=== PATIENT | female | born 1995 | race Caucasian/White ===

== ENCOUNTER → 2018-04-24 09:56 | Outpatient (CLI) | payer OTHER, SELFPAY ==
[2018-04-24 12:46] LABS: Absolute Lymphocyte Count 2.14 X10^3/ul (0.83-4.51); Basophil# 0.02 X10^3/uL; Basophil% 0.3 % (0-1); Eosinophil# 0.18 X10^3/uL; Eosinophils% 2.7 % (0-5); Hemoglobin 13.5 g/dl (12.0-15.0); Lymphocyte # 2.14 X10^3/ul (4.0); Lymphocyte % 31.8 % (19-41); Mean Corp Hgb Conc 32.1 g/gl (32-36); Mean Corpuscular Hgb 27.6 pg (27.0-32.0); Mean Corpuscular Volume 85.7 fL (81-99); Mean Platelet Vol. 9.5 fl (6.2-12.0); Monocyte# 0.42 X10^3/uL; Monocyte% 6.2 % (0-10); Neutrophil # 3.97 X10^3/uL (2.7-7.7); Neutrophil % 58.9 % (47-70); Platelet Count 248 K/mm3 (150-450); RBC Distribution Width CV 11.9 % (11.6-14.6); RBC Distribution Width SD 37.4 fl (35.1-43.9); White Blood Count 6.7 K/mm3 (4.4-11.0)
[2018-04-24 12:52] LABS: Erythrocyte Sedimentation Rate 22 mm/hr (0-20); POSITIVE DIFFERENTIAL NO
[2018-04-24 12:53] LABS: POSITIVE COUNT NO; POSITIVE MORPHOLOGY NO
[2018-04-24 13:05] LABS: AST(SGOT) 20 U/L (15-37); Alanine Aminotransfer ALT/SGPT 29 U/L (13-56); Albumin, Serum 3.8 g/dL (3.2-5.0); Alkaline Phosphatase 57 U/L (45-117); Anion Gap 9 (5-15); BUN 7 mg/dL (7-18); BUN/Creat Ratio 7.6 RATIO (10-20); CRP < 2.90 mg/L (0.0-3.0); Calcium,Total 8.9 mg/dL (8.5-10.1); Chloride 107 mmol/L (98-107); Creatinine, Serum 0.92 mg/dL (0.55-1.02); EST Glomerular Filtration Rate 80 mL/min (>60); Est Glom Filt Rate - Afr Amer 96 mL/min (>60); Globulin 3.9 g/dL (2.2-4.2); Glucose 90 mg/dL (74-106); Potassium 4.2 mmol/L (3.5-5.1); Protein, Total 7.7 g/dL (6.4-8.2); Sodium Level 140 mmol/L (136-145)
== END ==
PROVIDERS: Family Provider Family Medicine; PCP Family Medicine; Visit Provider Family Medicine
DX: N30.90 Cystitis, unspecified without hematuria (principal); K50.90 Crohn's disease, unspecified, without complications; M54.9 Dorsalgia, unspecified
CPT/HCPCS: 36415; 80053; 85025; 85652; 86140; 87086; 87088

== ENCOUNTER → 2018-05-10 10:14 | Outpatient (CLI) | payer OTHER, SELFPAY ==
--- NOTE | 2018-05-10 10:18 | US_ITS ---
STUDY: ABDOMINAL ULTRASOUND REASON FOR EXAM: Female, 22 years old. Crohn's disease. Left lower quadrant pain. Previous surgery. TECHNIQUE: Transabdominal ultrasound was performed with real-time and static rosas scale imaging. TECHNICAL QUALITY: Adequate. COMPARISON: None. FINDINGS: Liver: The liver measures 15.3 cm. There is increased echogenicity consistent with fatty infiltration. The bile ducts are within normal limits. There is hepatic color flow. The direction of portal flow is hepatopetal. There is no demonstrated mass lesion. Portal vein measurement: Gallbladder: Normal distended gallbladder. The gallbladder wall measures 2.2 mm. There is a negative sonographic Wade's sign. There is no pericholecystic fluid. There are no gallstones. Common Bile Duct (C.B.D.): The common bile duct measures 2.9 mm. Pancreas: Normal size of the head, body and tail of the pancreas. There is normal echogenicity of the pancreas. There is no demonstrated pancreatic mass or cyst. Spleen: There is mild splenomegaly. The spleen measures 13.6 cm. Right Kidney: Normal size of the right kidney. The right kidney measures 11.8 x 4.9 x 5.4 cm. Normal renal cortex. Probable 2 small nonobstructing right renal stones measuring 3 mm and 5 mm. There is no demonstrated renal mass or cyst. There is no right hydronephrosis. Left Kidney: Normal size of the left kidney. The left kidney measures 11.8 x 4.9 x 4.6 cm. Normal renal cortex. 2 small probable nonobstructing stones measuring 4 mm each. There is no demonstrated renal mass or cyst. There is no left hydronephrosis. Aorta: 2.2 cm. I.V.C.: The IVC is patent. There is no ascites. US/Abdomen Complete IMPRESSION: Probable bilateral nonobstructing renal stones. Mild fatty liver. Mild splenomegaly. Electronically Signed: Kevin Chris MD at 11:23 EDT , Service support ,
== END ==
PROVIDERS: Family Provider Family Medicine; PCP Family Medicine; Visit Provider Family Medicine
DX: R10.32 Left lower quadrant pain (principal); M54.5 Low back pain; K50.90 Crohn's disease, unspecified, without complications
CPT/HCPCS: 76700

== ENCOUNTER 2018-05-13 17:58 | Emergency (ER) | payer OTHER, SELFPAY ==
[2018-05-13 18:00] VITALS: BP 133/68; PULSE 92; RESP 16; TEMP 37.1; O2SAT 98; BMI 42.5
[2018-05-13 19:32] LABS: Bacteria 0 SEEN /hpf (None Seen); Mucous, Urine 0 SEEN /hpf (<or=2+); Red Blood Cells-Urine 0 SEEN /hpf (0-5); White Blood Cells 0 SEEN /hpf (0-5)
[2018-05-13 19:34] LABS: Color, Urine Yellow (Yellow); Glucose, Dipstick Normal (Normal); Ketone-Dipstick Negative (Negative); Leukocyte Esterase-Dipstick Negative /ul (Negative); Nitrite-Dipstick Negative (Negative); Occult Blood-Urine Negative /ul (Negative); Protein-Dipstick Negative (Negative); Specific Gravity, Urine 1.015 (1.002-1.030); Urine Bilirubin Dipstick Negative (Negative); Urine Clarity Clear (Clear); Urine Urobilinogen Normal (Normal)
[2018-05-13 19:36] LABS: Internal QC Validated? YES +Cl - CLEAR BKGD
[2018-05-13 19:37] LABS: Pregnancy, Urine Negative Negative
[2018-05-13 19:39] LABS: Absolute Lymphocyte Count 2.86 X10^3/ul (0.83-4.51); Absolute Neutrophil Count 4.8 X10^3/uL (2.0-7.7); Basophil# 0.03 X10^3/uL; Basophil% 0.4 % (0-1); Eosinophil# 0.18 X10^3/uL; Eosinophils% 2.2 % (0-5); Hematocrit 39.8 % (37-47); Lymphocyte # 2.86 X10^3/ul (4.0); Lymphocyte % 34.4 % (19-41); Mean Corp Hgb Conc 32.7 g/gl (32-36); Mean Corpuscular Hgb 27.8 pg (27.0-32.0); Mean Platelet Vol. 9.6 fl (6.2-12.0); Monocyte# 0.48 X10^3/uL; Monocyte% 5.8 % (0-10); Neutrophil # 4.77 X10^3/uL (2.7-7.7); Neutrophil % 57.2 % (47-70); Platelet Count 233 K/mm3 (150-450); RBC Distribution Width CV 12.3 % (11.6-14.6); RBC Distribution Width SD 37.5 fl (35.1-43.9); Red Blood Count 4.68 M/mm3 (4.2-5.4); White Blood Count 8.3 K/mm3 (4.4-11.0)
[2018-05-13 19:41] LABS: POSITIVE COUNT NO; POSITIVE DIFFERENTIAL NO; POSITIVE MORPHOLOGY NO
[2018-05-13 19:42] LABS: Squamous Epithelial Cells - UA 0-5 SEEN /hpf (5-10)
[2018-05-13 19:48] LABS: ALB/GLOB Ratio 0.9 RATIO (0.9-2.4); AST(SGOT) 29 U/L (15-37); Alanine Aminotransfer ALT/SGPT 33 U/L (13-56); Albumin, Serum 3.6 g/dL (3.2-5.0); Alkaline Phosphatase 47 U/L (45-117); Anion Gap 7 (5-15); BUN 14 mg/dL (7-18); BUN/Creat Ratio 14.4 RATIO (10-20); Calcium,Total 8.8 mg/dL (8.5-10.1); Chloride 106 mmol/L (98-107); Creatinine, Serum 0.97 mg/dL (0.55-1.02); EST Glomerular Filtration Rate 75 mL/min (>60); Est Glom Filt Rate - Afr Amer 91 mL/min (>60); Estimated Creatinine Clearance 74.62 ml/min; Globulin 3.8 g/dL (2.2-4.2); Glucose 83 mg/dL (74-106); Lipase 128 U/L (73-393); Potassium 4.2 mmol/L (3.5-5.1); Protein, Total 7.4 g/dL (6.4-8.2); Sodium Level 139 mmol/L (136-145)
[2018-05-13 20:13] VITALS: PULSE 78; RESP 16; O2SAT 98
--- NOTE | 2018-05-13 21:01 | ED.DCSUM_ITS ---
- ER Visit Summary Date of Service: 05/13/18 Chief Complaint: Abdominal pain History of Present Illness: The patient is a 22 F who presents with abdominal pain that has been waxing and waning for the past 1-1/2 hours. Patient states the pain is diffuse. Patient states the pain is a constant dull ache but occasionally sharp at times. Patient admits to some nausea but denies any vomiting. Patient states she has had some diarrhea. Patient denies any melena or hematochezia. Patient admits to some urinary frequency but denies any dysuria. Patient denies any abnormal vaginal bleeding. Patient states her last menstrual period was approximately 1 month ago. Physical Examination: Vital signs are stable. Patient is afebrile. Patient is in no acute distress. Oral mucosa is pink and moist. Neck is supple. There is no JVD noted. Heart was regular rate and rhythm. Lungs are clear and equal bilateral. Abdomen is soft. There is some mild epigastric tenderness. There is no rebound or guarding noted. Cranial nerves II through XII are intact. There are no focal motor or sensory deficits noted. The remaining physical exam is within normal limits. Test Results: CBC, conference of metabolic profile, urinalysis, and urine hCG were obtained were negative. Emergency Department Course and Treatment: Patient felt better on reevaluation. Patient was instructed to follow-up with her primary care physician in 7-10 days. Patient understood and was agreeable with the plan. All questions were answered. Disposition: Discharged home Impression: Abdominal pain This note was generated with [employer] dictation software. It may contain incorrect words, spelling, and punctuation that were not noted in review of the chart prior to signing ED Disposition - Plan for ED Patient: Disposition: Home or Assisted Living Chief Complaint: Abd Pain Diagnosis: Epigastric abdominal pain of unknown etiology Instructions: ED Abdominal Pain Unkn Cause Referrals: Faustino Hobbs MD [Primary Care Provider] -
[2018-05-13 21:05] VITALS: BP 120/76; PULSE 76; RESP 16; O2SAT 98
== END 2018-05-13 21:10 | disposition home or self-care (01) ==
PROVIDERS: Emergency Provider Emergency Medicine; Family Provider Family Medicine; PCP Family Medicine
DX: R10.9 Unspecified abdominal pain (principal); R19.7 Diarrhea, unspecified; R11.0 Nausea; R35.0 Frequency of micturition; K50.90 Crohn's disease, unspecified, without complications; R16.1 Splenomegaly, not elsewhere classified
CPT/HCPCS: 80053; 81001; 81025; 83690; 85025; 87086; 87088; 99283; A4216

== ENCOUNTER → 2018-05-28 08:00 | Outpatient (CLI) | payer OTHER, SELFPAY | PROVIDERS: Family Provider Family Medicine; PCP Family Medicine; Referring Provider Family Medicine; Visit Provider Family Medicine | DX: R82.90 Unspecified abnormal findings in urine (principal) ==

== ENCOUNTER → 2018-06-10 14:53 | Outpatient (CLI) | payer OTHER, SELFPAY ==
--- NOTE | 2018-06-10 14:55 | CT_ITS ---
STUDY: CT ABDOMEN AND PELVIS WITH CONTRAST REASON FOR EXAM: Female, 22 years old. Left-sided pain. History of small bowel resection due to Crohn's disease. RADIATION DOSAGE (If Supplied By Facility): CTDIvol = ( 14.49 ) mGy, DLP = ( 993.11 ) mGycm TECHNIQUE: Transaxial images were obtained from the dome of the diaphragm to the symphysis pubis without oral contrast. 100 ml of Isovue 300 contrast was administered. Sagittal and coronal images were reconstructed. Individualized dose optimization techniques were used for this CT. COMPARISON: None. FINDINGS: The visualized lung bases are clear. The visualized portions of the heart and pericardium are within normal limits. There are no calcified gallstones present. The liver is within normal limits. There are no suspicious hepatic lesions. The spleen is normal in size. The pancreas is within normal limits. The adrenal glands are within normal limits. There are no renal or ureteral stones. There is no hydronephrosis. There are no focal renal lesions. Normal visualized stomach. There is no bowel obstruction or inflammation. There are postsurgical changes noted from prior small bowel resection. There are surgical clips at the base of the cecum, likely from prior appendectomy. The aorta is normal in caliber. There is no abdominal or pelvic free air, free fluid, fluid collection or lymphadenopathy. There is a 2 cm complex cyst in the left adnexa. There are no destructive osseous lesions. CT/Abdomen/Pelvis WITH Contrast IMPRESSION: No bowel obstruction or inflammation. 2 cm complex cyst in the left adnexa. This may be hemorrhagic in nature. If indicated, further evaluation with ultrasound can be performed Electronically Signed: Christofer Ryder, at 15:35 EDT Tel , Service support ,
== END ==
PROVIDERS: Family Provider Family Medicine; PCP Family Medicine; Referring Provider Family Medicine; Visit Provider Family Medicine
DX: R10.9 Unspecified abdominal pain (principal)
CPT/HCPCS: 74177; Q9967

== ENCOUNTER → 2018-08-07 17:24 | Outpatient (CLI) | payer OTHER, SELFPAY ==
[2018-08-07 10:17] VITALS: BMI 42.5
[2018-08-07 21:21] LABS: Chlamydia Trachomatis by PCR Negative (Negative); Neisserai gonorrhoeae by PCR Negative (Negative); Probe Check PASS; Sample Adequacy Control PASS; Specimen Processing Control PASS
[2018-08-11 08:42] LABS: HPV Reflexed? NOT INDICATED
== END ==
PROVIDERS: Family Provider Family Medicine; PCP Family Medicine; Referring Provider Nurse Practitioner Women's Health; Visit Provider Nurse Practitioner Women's Health
DX: Z11.3 Encounter for screening for infections with a predominantly sexual mode of transmission (principal); Z12.4 Encounter for screening for malignant neoplasm of cervix
CPT/HCPCS: 87491; 87591; 87624; 88175; G0145

== ENCOUNTER → 2018-10-22 13:58 | Outpatient (CLI) | payer OTHER, SELFPAY ==
[2018-08-07 10:17] VITALS: BMI 42.5
[2018-10-22 15:27] LABS: Hemoglobin 13.6 g/dl (12.0-15.0); Mean Corp Hgb Conc 32.4 g/gl (32-36); Mean Corpuscular Hgb 28.3 pg (27.0-32.0); Mean Corpuscular Volume 87.3 fL (81-99); Mean Platelet Vol. 9.9 fl (6.2-12.0); Platelet Count 239 K/mm3 (150-450); RBC Distribution Width CV 12.2 % (11.6-14.6); RBC Distribution Width SD 39.4 fl (35.1-43.9); Red Blood Count 4.81 M/mm3 (4.2-5.4); White Blood Count 8.4 K/mm3 (4.4-11.0)
[2018-10-22 15:32] LABS: Scan Indicated on CBC? Y/N NO
[2018-10-22 15:46] LABS: ALB/GLOB Ratio 1.1 RATIO (0.9-2.4); AST(SGOT) 25 U/L (15-37); Alanine Aminotransfer ALT/SGPT 33 U/L (13-56); Albumin, Serum 4.2 g/dL (3.2-5.0); Alkaline Phosphatase 50 U/L (45-117); Anion Gap 9 (5-15); BUN 13 mg/dL (7-18); BUN/Creat Ratio 13.1 RATIO (10-20); Calcium,Total 9.1 mg/dL (8.5-10.1); Chloride 105 mmol/L (98-107); Creatinine, Serum 0.99 mg/dL (0.55-1.02); EST Glomerular Filtration Rate 73 mL/min (>60); Est Glom Filt Rate - Afr Amer 89 mL/min (>60); Globulin 3.7 g/dL (2.2-4.2); Glucose 87 mg/dL (74-106); Potassium 4.1 mmol/L (3.5-5.1); Protein, Total 7.9 g/dL (6.4-8.2); Sodium Level 140 mmol/L (136-145)
[2018-10-22 15:49] LABS: Vitamin B12 834 pg/mL (211-911)
[2018-10-22 16:00] LABS: Erythrocyte Sedimentation Rate 7 mm/hr (0-20)
== END ==
PROVIDERS: Family Provider Family Medicine; PCP Family Medicine; Referring Provider Internal Medicine Gastroenterology; Visit Provider Internal Medicine Gastroenterology
DX: K50.90 Crohn's disease, unspecified, without complications (principal)
CPT/HCPCS: 36415; 80053; 82607; 85027; 85652

== ENCOUNTER → 2018-11-19 12:08 | Outpatient (CLI) | payer OTHER, SELFPAY ==
[2018-08-07 10:17] VITALS: BMI 42.5
[2018-11-19 15:29] LABS: Absolute Lymphocyte Count 2.58 X10^3/ul (0.83-4.51); Absolute Neutrophil Count 4.2 X10^3/uL (2.0-7.7); Basophil# 0.02 X10^3/uL; Basophil% 0.3 % (0-1); Eosinophil# 0.11 X10^3/uL; Eosinophils% 1.5 % (0-5); Hematocrit 41.6 % (37-47); Hemoglobin 13.8 g/dl (12.0-15.0); Lymphocyte # 2.58 X10^3/ul (4.0); Lymphocyte % 34.5 % (19-41); Mean Corp Hgb Conc 33.2 g/gl (32-36); Mean Corpuscular Hgb 28.4 pg (27.0-32.0); Mean Corpuscular Volume 85.6 fL (81-99); Mean Platelet Vol. 10.6 fl (6.2-12.0); Monocyte# 0.53 X10^3/uL; Monocyte% 7.1 % (0-10); Neutrophil # 4.22 X10^3/uL (2.7-7.7); Neutrophil % 56.5 % (47-70); Platelet Count 237 K/mm3 (150-450); RBC Distribution Width CV 12.2 % (11.6-14.6); RBC Distribution Width SD 37.9 fl (35.1-43.9); Red Blood Count 4.86 M/mm3 (4.2-5.4); White Blood Count 7.5 K/mm3 (4.4-11.0)
[2018-11-19 15:32] LABS: POSITIVE COUNT NO; POSITIVE DIFFERENTIAL NO; POSITIVE MORPHOLOGY NO
[2018-11-19 15:57] LABS: ALB/GLOB Ratio 1.2 RATIO (0.9-2.4); AST(SGOT) 20 U/L (15-37); Alanine Aminotransfer ALT/SGPT 29 U/L (13-56); Albumin, Serum 4.3 g/dL (3.2-5.0); Alkaline Phosphatase 48 U/L (45-117); Anion Gap 8 (5-15); BUN 10 mg/dL (7-18); BUN/Creat Ratio 10.6 RATIO (10-20); CRP < 2.90 mg/L (0.0-3.0); Calcium,Total 8.6 mg/dL (8.5-10.1); Chloride 109 mmol/L (98-107); Creatinine, Serum 0.95 mg/dL (0.55-1.02); EST Glomerular Filtration Rate 77 mL/min (>60); Est Glom Filt Rate - Afr Amer 93 mL/min (>60); Globulin 3.5 g/dL (2.2-4.2); Glucose 87 mg/dL (74-106); Lipase 112 U/L (73-393); Potassium 3.8 mmol/L (3.5-5.1); Protein, Total 7.8 g/dL (6.4-8.2); Sodium Level 140 mmol/L (136-145); Thyroid Stim Hormone (TSH) 0.68 uIU/mL (0.358-3.74)
[2018-11-19 16:06] LABS: Erythrocyte Sedimentation Rate 6 mm/hr (0-20)
[2018-11-21 14:40] LABS: ANTINUCLEAR ANTIBODIES DIRECT Negative (Negative)
== END ==
PROVIDERS: Family Provider Family Medicine; PCP Family Medicine; Referring Provider Family Medicine; Visit Provider Family Medicine
DX: K50.90 Crohn's disease, unspecified, without complications (principal); M54.6 Pain in thoracic spine; R10.9 Unspecified abdominal pain; R39.15 Urgency of urination
CPT/HCPCS: 36415; 80053; 83690; 84443; 85025; 85652; 86038; 86140

== ENCOUNTER 2018-11-19 18:41 | Emergency (ER) | payer OTHER, SELFPAY ==
[2018-08-07 10:17] VITALS: BMI 42.5
[2018-11-19 18:43] VITALS: BP 134/79; PULSE 71; RESP 18; TEMP 36.7; O2SAT 99; BMI 41.5
--- NOTE | 2018-11-19 18:52 | ED.RN ---
PAIN HAS GOTTEN PROGRESSIVELY WORSE SINCE LAST . THE LAST COUPLE OF DAYS ARE EVEN WORSE.
--- NOTE | 2018-11-19 19:26 | CT_ITS ---
STUDY: CT ABDOMEN AND PELVIS WITH CONTRAST REASON FOR EXAM: Female, 23 years old. Crohn's disease, left upper abdominal pain radiating to the back RADIATION DOSAGE (If Supplied By Facility): CTDIvol = ( 16.97 ) mGy, DLP = ( 1277.49 ) mGycm TECHNIQUE: Transaxial images were obtained from the dome of the diaphragm to the symphysis pubis with oral contrast. 100ml IV/Oral Isovue 300 was administered. Sagittal and coronal images were reconstructed. Individualized dose optimization techniques were used for this CT. COMPARISON: 06/10/2018 FINDINGS: The visualized lung bases are unremarkable. The visualized portions of the heart are within normal limits. Normal liver. Normal gallbladder and extrahepatic biliary system. Normal spleen. Normal pancreas. Normal bilateral adrenal glands. Normal right kidney. Normal left kidney. Normal visualized stomach. Normal small intestine. Resection of the proximal colon. Normal abdominal aorta. Normal inferior vena cava. Normal retroperitoneum. Normal urinary bladder. Free pelvic fluid. 20 x 15 mm corpus luteum cyst in the left ovary. Normal abdominal wall. Normal osseous structures. CT/Abdomen/Pelvis WITH Contrast IMPRESSION: No evidence of acute intestinal pathology. No evidence of free air or abscess. Free pelvic fluid. 20 x 15 mm corpus luteum cyst in the left ovary. Electronically Signed: Tito Thompson MD at 22:07 EDT Tel , Service support ,
[2018-11-19] MEDS: Ondansetron 4 MG/2 ML Vial IV (19:51)
[2018-11-19] MEDS: 0.9% Normal Saline 1,000 ML 1000 ML IV (19:51)
[2018-11-19] MEDS: HYDROmorphone 1 MG/ML Syringe 0.5 MG IV (19:51)
[2018-11-19 20:04] LABS: Bacteria 0 SEEN /hpf (None Seen); Mucous, Urine 0 SEEN /hpf (<or=2+); Red Blood Cells-Urine 0 SEEN /hpf (0-5); Squamous Epithelial Cells - UA 0 SEEN /hpf (5-10); White Blood Cells 0 SEEN /hpf (0-5)
[2018-11-19 20:05] LABS: Color, Urine Yellow (Yellow); Glucose, Dipstick Normal (Normal); Ketone-Dipstick 5 mg/dl (Negative); Leukocyte Esterase-Dipstick 25 /ul (Negative); Nitrite-Dipstick Negative (Negative); Occult Blood-Urine Negative /ul (Negative); Protein-Dipstick Negative (Negative); Specific Gravity, Urine 1.025 (1.002-1.030); Urine Bilirubin Dipstick Negative (Negative); Urine Clarity Sl. Cloudy (Clear); Urine Urobilinogen Normal (Normal)
[2018-11-19 20:55] LABS: Pregnancy, Serum, hCG Quali. NEGATIVE Negative (0-9 Nonpreg)
[2018-11-19 22:00] VITALS: BP 137/69; PULSE 66; RESP 16; O2SAT 98
[2018-11-19] MEDS: HYDROmorphone 0.5 MG/0.5 ML SYRINGE IV (22:22)
--- NOTE | 2018-11-19 22:34 | ED.DCSUM_ITS ---
- ER Visit Summary Date of Service: 11/19/18 Chief Complaint: Abdominal pain History of Present Illness: The patient is a 23 F with left-sided abdominal pain that has been mild since April but more severe over the past 1 week. She reports having several days of nausea and vomiting that are now improving. She was seen by her primary care doctor today and labs were done in the office. She is a history of Crohn's. She states she never gets the typical diarrhea with Crohn's flare. She has had some mild urinary urgency but no dysuria. Physical Examination: Vital signs unremarkable. Patient sitting upright in bed. She is in no acute distress but does appear uncomfortable. Heart is regular rate and rhythm. Lung sounds are clear. Abdomen is soft with mild left mid abdominal pain. No guarding or rebound. Hypoactive bowel sounds are present. No skin rash or lesions are noted. Test Results: Labs from earlier today were reviewed. Urinalysis shows no sign of acute infection. test negative. CT scan abdomen and pelvis with p.o. and IV contrast is obtained. There is no evidence of acute pathology. No free air or abscess. There is a 20 x 15 mm corpus luteum cyst in the left ovary. Emergency Department Course and Treatment: Patient was given a small dose of Dilaudid, Zofran, and IV fluids. On repeat evaluation she voices frustration with not finding an answer and stating that she is tired of always being in pain. I spoke with her primary care physician who saw her in the office earlier today. Is been a chronic ongoing cycle for her. Patient will be seen in the office in close follow-up. Treatment Plan: [] Disposition: Discharge Impression: Left flank pain, uncertain etiology This note was generated with [employer] dictation software. It may contain incorrect words, spelling, and punctuation that were not noted in review of the chart prior to signing ED Disposition - Plan for ED Patient: Disposition: Home or Assisted Living Instructions: ED Abdominal Pain Unkn Cause Prescriptions: Hydrocodone Bitart/Apap 5-325 [[place] 5MG-325MG] 1 tablet PO Q6H PRN PRN 3 Days #10 tablet PRN Reason: Pain Referrals: Faustino Hobbs MD [Primary Care Provider] - 1-2 Weeks
--- NOTE | 2018-11-19 22:38 | DCINST.ED_ITS ---
ED Disposition - Plan for ED Patient: Disposition: Home or Assisted Living Instructions: ED Abdominal Pain Unkn Cause Prescriptions: Hydrocodone Bitart/Apap 5-325 [[place] 5MG-325MG] 1 tablet PO Q6H PRN PRN 3 Days #10 tablet PRN Reason: Pain Referrals: Faustino Hobbs MD [Primary Care Provider] - 1-2 Weeks
== END 2018-11-19 22:58 | disposition home or self-care (01) ==
PROVIDERS: Emergency Provider Emergency Medicine; Family Provider Family Medicine; PCP Family Medicine
DX: R10.9 Unspecified abdominal pain (principal); R11.2 Nausea with vomiting, unspecified; N83.12 Corpus luteum cyst of left ovary; K50.90 Crohn's disease, unspecified, without complications; R39.15 Urgency of urination; J45.909 Unspecified asthma, uncomplicated
CPT/HCPCS: 74177; 81001; 84703; 96361; 96374; 96375; 99283; J7030; Q9967; A4216; J2405

== ENCOUNTER 2019-02-22 12:19 | Emergency (ER) | payer OTHER, SELFPAY ==
[2019-02-22 12:20] VITALS: BP 106/62; PULSE 80; RESP 16; TEMP 36.6; O2SAT 97; BMI 35.4
--- NOTE | 2019-02-22 13:58 | ED.DEP ---
ED Disposition - Plan for ED Patient: Instructions: Thrombosed Hemorrhoids, PHARYNGITIS, Viral Prescriptions: Hydrocortisone [Anusol Hc] 25 mg RECTAL BID PRN PRN #10 suppos. PRN Reason: Hemorrhoids Prescription Printed Referrals: Faustino Hobbs MD [Primary Care Provider] - 3-5 Days
--- NOTE | 2019-02-22 14:03 | ED.DCSUM_ITS ---
- ER Visit Summary Date of Service: 02/22/19 Chief Complaint: [Abdominal pain, rectal pain, and sore throat] History of Present Illness: The patient is a 23 F [presents to the emergency department with symptoms of intermittent abdominal discomfort for the last month. Patient had some mild nausea but no vomiting. Patient's had diarrhea off-and-on but no blood in her stool. Patient currently being treated for Crohn's disease and is on Humira. Patient has history of partial small bowel resection that is remote. Patient states that she thinks she currently has a hemorrhoid because it is causing her discomfort. The hemorrhoid is the main reason she is here today. Patient also states that she has had a bit of a sore throat for a couple of days. Patient denies any significant cough. Denies any fevers.] Physical Examination: [HEENT-PERRLA, EOMI. Cranial nerves II through XII grossly intact. TMs clear. Mucous membranes moist. No adenopathy. Patient has mild pharyngeal erythema. No exudates. Uvula midline no trismus. Cardiovascular-regular rate and rhythm without murmur or ectopy Lungs-clear to auscultation, chest wall stable without crepitus or subcu emphysema Abdomen-normoactive bowel sounds, soft, nontender, no rebound or rigidity, no peritoneal signs. Rectal exam-patient does have a thrombosed hemorrhoid at the 12 o'clock position. Hemorrhoid is tender to palpation. Extremities-intact ?4, normal range of motion, normal pulses, atraumatic] Test Results: [Rapid strep screen was negative. Emergency Department Course and Treatment: [Patient was offered incision and evacuation of the hemorrhoids which she agreed. Patient had local anesthesia via lidocaine total of 1 cc. Using 11 blade 1 cm incision was made and the clot was easily evacuated. The entire procedure well.] Treatment Plan: [Patient will be given a prescription for Anusol HC. Advised on sitz bath's. Patient to follow-up with primary care physician 3 to 5 days.] Disposition: [Discharged home stable condition.] Impression: [Thrombosed hemorrhoid-evacuated Viral pharyngitis] This note was generated with [employer] software. It may contain incorrect words, spelling, and punctuation that were not noted in review of the chart prior to signing ED Disposition - Plan for ED Patient: Instructions: Thrombosed Hemorrhoids, PHARYNGITIS, Viral Prescriptions: Hydrocortisone [Anusol Hc] 25 mg RECTAL BID PRN PRN #10 suppos. PRN Reason: Hemorrhoids Prescription Printed Referrals: Faustino Hobbs MD [Primary Care Provider] - 3-5 Days
[2019-02-22 14:14] VITALS: BP 113/69; PULSE 72; RESP 15; O2SAT 98
== END 2019-02-22 14:15 | disposition home or self-care (01) ==
LOC: ED 13:40
PROVIDERS: Emergency Provider Emergency Medicine; Family Provider Family Medicine; PCP Family Medicine
DX: K64.5 Perianal venous thrombosis (principal); J02.9 Acute pharyngitis, unspecified; R11.0 Nausea; K50.90 Crohn's disease, unspecified, without complications
CPT/HCPCS: 46083; 87880; 99283

== ENCOUNTER → 2019-03-04 16:29 | Outpatient (CLI) | payer OTHER, SELFPAY ==
[2019-02-22 12:20] VITALS: BMI 35.4
[2019-03-04 17:28] LABS: Hematocrit 41.6 % (37-47); Hemoglobin 13.5 g/dL (12.0-15.0); Mean Corp Hgb Conc 32.5 g/dL (32-36); Mean Corpuscular Hgb 28.2 pg (27.0-32.0); Mean Platelet Vol. 10.7 fl (6.2-12.0); Platelet Count 251 K/mm3 (150-450); RBC Distribution Width CV 11.7 % (11.6-14.6); RBC Distribution Width SD 37.4 fl (35.1-43.9); Red Blood Count 4.78 M/mm3 (4.2-5.4); White Blood Count 8.3 K/mm3 (4.4-11.0)
[2019-03-04 18:04] LABS: AST(SGOT) 18 U/L (15-37); Alanine Aminotransfer ALT/SGPT 29 U/L (13-56); Albumin, Serum 4.1 g/dL (3.2-5.0); Alkaline Phosphatase 47 U/L (45-117); Bilirubin, Direct 0.15 mg/dL (0.00-0.30); CRP < 2.90 mg/L (0.0-3.0); Globulin 3.5 g/dL (2.2-4.2); Protein, Total 7.6 g/dL (6.4-8.2)
== END ==
PROVIDERS: Family Provider Family Medicine; PCP Family Medicine; Referring Provider Internal Medicine Gastroenterology; Visit Provider Internal Medicine Gastroenterology
DX: K50.90 Crohn's disease, unspecified, without complications (principal)
CPT/HCPCS: 36415; 80076; 85027; 86140

== ENCOUNTER 2019-03-12 12:32 | Emergency (ER) | payer OTHER, SELFPAY ==
[2019-03-12 12:32] VITALS: BP 140/83; PULSE 68; RESP 16; TEMP 36.4; O2SAT 100; BMI 35.8
--- NOTE | 2019-03-12 12:51 | CT_ITS ---
STUDY: CT ABDOMEN AND PELVIS WITH CONTRAST REASON FOR EXAM: Female, 23 years old. Left flank pain RADIATION DOSAGE (If Supplied By Facility): CTDIvol = ( 19.58 ) mGy, DLP = ( 1188.60 ) mGycm TECHNIQUE: Transaxial images were obtained from the dome of the diaphragm to the symphysis pubis without oral contrast. 100ML IV/Oral Isovue 300 was administered. Sagittal and coronal images were reconstructed. Individualized dose optimization techniques were used for this CT. COMPARISON: 11/19/2018 FINDINGS: The visualized lung bases are unremarkable. The visualized portions of the heart are within normal limits. Normal liver. Normal gallbladder and extrahepatic biliary system. Normal spleen. Normal pancreas. Normal bilateral adrenal glands. Normal right kidney. Normal left kidney. Normal visualized stomach. Normal small intestine. There are a few scattered sigmoid diverticula with nonspecific thickening of the sigmoid colon suggesting sequela from previous exacerbations of Crohn's disease. There is a normal-appearing uterus with bilateral ovarian cysts and free fluid in the dependent pelvis pass a recently ruptured ovarian cyst. There are surgical clips in the region of the appendix consistent with a prior appendectomy. Normal abdominal aorta. Normal inferior vena cava. Normal retroperitoneum. Normal urinary bladder. Normal abdominal wall. Normal osseous structures. CT/Abdomen/Pelvis WITH Contrast IMPRESSION: Bilateral ovarian cysts with free fluid in the dependent pelvis likely from recently ruptured or hemorrhagic ovarian cyst. Nonspecific thickening of the sigmoid colon likely from recent exacerbation of Crohn's. No suspicious solid organ abnormality Postsurgical changes in the right mid abdomen, no obstruction or stricture noted Electronically Signed: Rubens Devi MD at 15:04 EDT , Service support ,
[2019-03-12] MEDS: Ondansetron 4 MG/2 ML Vial IV (12:59)
[2019-03-12] MEDS: 0.9% Normal Saline 1,000 ML 1000 ML IV (12:59)
[2019-03-12 13:19] LABS: Red Blood Cells-Urine 0 SEEN /hpf (0-5)
[2019-03-12 13:22] LABS: Absolute Lymphocyte Count 2.58 X10^3/uL (0.83-4.51); Absolute Neutrophil Count 6.9 X10^3/uL (2.0-7.7); Basophil# 0.04 X10^3/uL; Basophil% 0.4 % (0-1); Eosinophil# 0.08 X10^3/uL; Eosinophils% 0.8 % (0-5); Hematocrit 40.2 % (37-47); Hemoglobin 13.8 g/dL (12.0-15.0); Lymphocyte # 2.58 X10^3/ul (4.0); Lymphocyte % 25.1 % (19-41); Mean Corp Hgb Conc 34.3 g/dL (32-36); Mean Corpuscular Hgb 29.9 pg (27.0-32.0); Mean Corpuscular Volume 87.2 fL (81-99); Mean Platelet Vol. 10.3 fl (6.2-12.0); Monocyte# 0.69 X10^3/uL; Monocyte% 6.7 % (0-10); NRBC Flagged by Analyzer 0 % (0-5); Neutrophil # 6.88 X10^3/uL (2.7-7.7); Neutrophil % 66.9 % (47-70); Platelet Count 204 K/mm3 (150-450); RBC Distribution Width CV 11.8 % (11.6-14.6); RBC Distribution Width SD 37.2 fl (35.1-43.9); Red Blood Count 4.61 M/mm3 (4.2-5.4); White Blood Count 10.3 K/mm3 (4.4-11.0)
[2019-03-12 13:23] LABS: Color, Urine Yellow (Yellow); Glucose, Dipstick Normal (Normal); Ketone-Dipstick 50 mg/dl (Negative); Leukocyte Esterase-Dipstick 25 /ul (Negative); Nitrite-Dipstick Negative (Negative); Occult Blood-Urine Negative /ul (Negative); Protein-Dipstick 30 mg/dl (Negative); Specific Gravity, Urine 1.015 (1.002-1.030); Urine Clarity Sl. Cloudy (Clear); Urine Urobilinogen 4 mg/dl (Normal)
[2019-03-12 13:24] LABS: Urine Bilirubin Dipstick 1 mg/dL (Negative)
[2019-03-12 13:25] LABS: Internal QC Validated? YES +Cl - CLEAR BKGD; Pregnancy, Urine Negative Negative
[2019-03-12 13:37] LABS: ALB/GLOB Ratio 1.3 RATIO (0.9-2.4); AST(SGOT) 19 U/L (15-37); Alanine Aminotransfer ALT/SGPT 31 U/L (13-56); Albumin, Serum 4.3 g/dL (3.2-5.0); Alkaline Phosphatase 46 U/L (45-117); Anion Gap 7 (5-15); BUN 8 mg/dL (7-18); BUN/Creat Ratio 8.6 RATIO (10-20); Bacteria 2+ /hpf (None Seen); Chloride 109 mmol/L (98-107); Creatinine, Serum 0.94 mg/dL (0.55-1.02); EST Glomerular Filtration Rate 78 mL/min (>60); Est Glom Filt Rate - Afr Amer 94 mL/min (>60); Estimated Creatinine Clearance 72.99 ml/min; Globulin 3.2 g/dL (2.2-4.2); Glucose 90 mg/dL (74-106); Lipase 104 U/L (73-393); Mucous, Urine 2+ /hpf (<or=2+); Potassium 3.8 mmol/L (3.5-5.1); Protein, Total 7.5 g/dL (6.4-8.2); Sodium Level 143 mmol/L (136-145); Squamous Epithelial Cells - UA 0-5 SEEN /hpf (5-10); White Blood Cells 0-5 SEEN /hpf (0-5)
--- NOTE | 2019-03-12 13:39 | ED.DCSUM_ITS ---
History of Present Illness Chief Complaint: Back Onset: Month(s) - 3 Narrative: Intermittent left flank pain radiating across to her epigastric region for the past 3 months. Nausea without vomiting. History of Crohn's disease on Humira since she was 13 years old. She is followed by Dr. Whitlock. She states she has had 30 pound weight loss. She had a colonoscopy yesterday by Dr. Whitlock with no acute findings. Chronic loose stools due to her Crohn's no bloody stools. Denies urinary symptoms. Last menstrual period 2 weeks ago. No fevers. Prior similar symptoms: No Past Medical History - Allergies and Home Meds Allergies/Adverse Reactions: Allergies codeine Allergy (Verified 03/12/19 12:35) Swelling morphine Allergy (Verified 03/12/19 12:35) Shortness of breath Primary Care Physician: Faustino Hobbs MD [Primary Care Provider] - Smoking Status: Never smoker Review of Systems General: Denies: Chills, Fever, Sweats Eyes: Denies: Visual changes - bilaterally, Diplopia ENT: Denies: Rhinorrhea, Sore throat Cardiovascular: Denies: Chest pain, Palpitations Respiratory: Denies: Dyspnea, Cough, Dyspnea on exertion Gastrointestinal: Reports: Abdominal pain, Nausea. Denies: Vomiting, Diarrhea, Melena, Hematochezia Genitourinary: Denies: Dysuria, Hematuria, Frequency Musculoskeletal: Reports: Back pain. Denies: Extremity Pain Skin: Denies: Rash, Wounds Neurological: Denies: Headache, Weakness, Numbness Physical Exam Vital Signs/Narrative: Vital Signs Temp Pulse Resp BP Pulse Ox 03/12/19 12:32 97.6 F L 68 16 140/83 H 100 Inital Vital Signs reviewed: Yes General: Well nourished, Well developed, No Acute Distress Head: Normocephalic, Atraumatic Eyes: Perrl, EOMI ENT: Moist mucous membranes, No rhinorrhea Neck: Supple, Nontender Cardiovascular: Regular rate, Regular rhythm, No murmurs Respiratory: No distress, CTA bilaterally, Chest nontender Abdomen: Soft, Nondistended, Normal bowel sounds, - - Mild epigastric tenderness, no guarding or rebound. Back: Nontender, Normal Inspection, - - No rash.. Negative for: CVA tenderness Extremities: Nontender, No edema Skin: Normal color, No rash Neurological: Alert, Oriented x3, Cranial nerves II-XII grossly intact, Normal Strength, Normal Sensation Psychological: Normal affect, Normal Mood Diagnostic/Tx/Re-eval Clinical Impression(s) from Imaging Studies Abdomen/Pelvis CT 03/12/19 12:51 IMPRESSION: Bilateral ovarian cysts with free fluid in the dependent pelvis likely from recently ruptured or hemorrhagic ovarian cyst. Nonspecific thickening of the sigmoid colon likely from recent exacerbation of Crohn's. No suspicious solid organ abnormality Postsurgical changes in the right mid abdomen, no obstruction or stricture noted Electronically Signed: Rubens Devi MD at 15:04 EDT , Service support , Abnormal Lab Results 03/12/19 03/12/19 03/12/19 13:00 13:00 13:00 WBC 10.3 RBC 4.61 Hgb 13.8 Hct 40.2 MCV 87.2 MCH 29.9 MCHC 34.3 RDW Std Deviation 37.2 RDW Coeff of Ele 11.8 Plt Count 204 MPV 10.3 Immature Gran % (Auto) 0.100 Neut % (Auto) 66.9 Lymph % (Auto) 25.1 [place] % (Auto) 6.7 Eos % (Auto) 0.8 Baso % (Auto) 0.4 Absolute Neuts (auto) 6.9 Absolute Lymphs (auto) 2.58 Absolute Nucleated RBC 0.00 Nucleated RBC % 0 Sodium 143 Potassium 3.8 Chloride 109 H Carbon Dioxide 27.0 Anion Gap 7 BUN 8 Creatinine 0.94 Estim Creat Clear Calc 72.99 Est GFR (MDRD) Af Amer 94 Est GFR (MDRD) Non-Af 78 BUN/Creatinine Ratio 8.6 L Glucose 90 Calcium 9.0 Total Bilirubin 1.10 H AST 19 ALT 31 Alkaline Phosphatase 46 Total Protein 7.5 Albumin 4.3 Globulin 3.2 Albumin/Globulin Ratio 1.3 Lipase 104 Urine Color Urine Clarity Urine pH Ur Specific [place] Urine Protein Urine Glucose (UA) Urine Ketones Urine Occult Blood Urine Nitrite Urine Bilirubin Urine Urobilinogen Ur Leukocyte Esterase Urine RBC Urine WBC Ur Squamous Epith Cells Urine Bacteria Urine Mucus Urine Test Negative 03/12/19 13:00 WBC RBC Hgb Hct MCV MCH MCHC RDW Std Deviation RDW Coeff of Ele Plt Count MPV Immature Gran % (Auto) Neut % (Auto) Lymph % (Auto) [place] % (Auto) Eos % (Auto) Baso % (Auto) Absolute Neuts (auto) Absolute Lymphs (auto) Absolute Nucleated RBC Nucleated RBC % Sodium Potassium Chloride Carbon Dioxide Anion Gap BUN Creatinine Estim Creat Clear Calc Est GFR (MDRD) Af Amer Est GFR (MDRD) Non-Af BUN/Creatinine Ratio Glucose Calcium Total Bilirubin AST ALT Alkaline Phosphatase Total Protein Albumin Globulin Albumin/Globulin Ratio Lipase Urine Color Yellow Urine Clarity Sl. Cloudy Urine pH 7.0 Ur Specific [place] 1.015 Urine Protein 30 H Urine Glucose (UA) Normal Urine Ketones 50 H Urine Occult Blood Negative Urine Nitrite Negative Urine Bilirubin 1 H Urine Urobilinogen 4 H Ur Leukocyte Esterase 25 H Urine RBC 0 SEEN Urine WBC 0-5 SEEN Ur Squamous Epith Cells 0-5 SEEN Urine Bacteria 2+ Urine Mucus 2+ Urine Test - Medical Decision Making Patient nonsurgical abdomen. Vital signs stable. Reports flank pain rating across, there is no rash. Is been going on for 3 months. Reports weight loss. Discussed work-up with labs and imagings. She agrees. Contrast CT negative for acute process. Noted thickening sigmoid consistent from her Crohn's disease. She had bilateral ovarian cyst with free fluids with possible rupturing of her cyst. She is nontender in the pelvis region. Urine noted bacteria with leukocytes she is asymptomatic I did send for urine cultures. Would not treat at this time. Nausea improved. She was given prescription of Zofran to use as needed Tylenol as needed. Also discussed placing on a acid second chef empirically and monitoring symptoms. She will follow-up with her GI physician Dr. Whitlock. ED Disposition - Plan for ED Patient: Disposition: Home or Assisted Living Diagnosis: Flank pain, Abdominal pain, Ovarian cyst Instructions: FLANK PAIN, Uncertain Cause, ABDOMINAL PAIN, Unknown Cause, (Female), Ovarian Cyst Prescriptions: Omeprazole 40 mg PO DAILY #30 capsule. Ondansetron [Zofran Odt] 4 mg PO Q8H PRN PRN #10 tablet PRN Reason: Nausea Referrals: Faustino Hobbs MD [Primary Care Provider] - Daniel Whitlock MD [NON-STAFF] - 3-5 Days
== END 2019-03-12 15:58 | disposition home or self-care (01) ==
PROVIDERS: Emergency Provider Emergency Medicine; Family Provider Family Medicine; PCP Family Medicine
DX: R10.9 Unspecified abdominal pain (principal); N83.201 Unspecified ovarian cyst, right side; N83.202 Unspecified ovarian cyst, left side; K50.90 Crohn's disease, unspecified, without complications; R63.4 Abnormal weight loss; Z88.5 Allergy status to narcotic agent
CPT/HCPCS: 74177; 80053; 81001; 81025; 83690; 85025; 87086; 87088; 96361; 96374; 99283; J7030; Q9967; A4216; J2405

== ENCOUNTER → 2019-03-13 09:43 | Outpatient (CLI) | payer OTHER, SELFPAY ==
[2019-03-12 12:32] VITALS: BMI 35.8
--- NOTE | 2019-03-13 09:45 | RAD_ITS ---
STUDY: X-RAY - CERVICAL SPINE REASON FOR EXAM: Female, 23 years old. Neck pain and headache TECHNIQUE: 5 view(s) of the cervical spine were obtained. COMPARISON: None FINDINGS: Normal anterior atlantoaxial articulation. Normal odontoid process. There is straightening of the normal cervical lordosis. Normal vertebral bodies and endplates. Normal disc space heights. Normal visualized intervertebral neuroforamina. The soft tissue structures are unremarkable. RAD/Cerv Spine 4 or 5 Views IMPRESSION: Normal x-ray examination of the visualized cervical spine. Electronically Signed: Rubens Devi MD at 11:10 EDT , Service support ,
--- NOTE | 2019-03-13 09:45 | RAD_ITS ---
STUDY: X-RAY - THORACIC SPINE REASON FOR EXAM: Female, 23 years old. Mid back pain TECHNIQUE: 2 view(s) of the thoracic spine were obtained. COMPARISON: None. FINDINGS: Normal kyphosis of the thoracic spine. There is no substantial scoliosis. Normal thoracic vertebrae and endplates. Normal disc space heights. The soft tissue structures are unremarkable. RAD/Thoracic Spine 3 Views IMPRESSION: Normal x-ray examination of the thoracic spine. Electronically Signed: Rubens Devi MD at 11:12 EDT , Service support ,
== END ==
PROVIDERS: Family Provider Family Medicine; PCP Family Medicine; Referring Provider Family Medicine; Visit Provider Family Medicine
DX: R29.898 Other symptoms and signs involving the musculoskeletal system (principal)
CPT/HCPCS: 72050; 72072

== ENCOUNTER → 2019-04-17 11:58 | Outpatient (CLI) | payer OTHER, SELFPAY ==
[2019-04-17 14:17] LABS: Erythrocyte Sedimentation Rate 7 mm/hr (0-20)
[2019-04-17 14:19] LABS: Absolute Lymphocyte Count 2.75 X10^3/uL (0.83-4.51); Absolute Neutrophil Count 3.8 X10^3/uL (2.0-7.7); Basophil# 0.03 X10^3/uL; Basophil% 0.4 % (0-1); Eosinophil# 0.18 X10^3/uL; Eosinophils% 2.5 % (0-5); Hematocrit 42.8 % (37-47); Hemoglobin 13.9 g/dL (12.0-15.0); Lymphocyte # 2.75 X10^3/ul (4.0); Lymphocyte % 37.9 % (19-41); Mean Corp Hgb Conc 32.5 g/dL (32-36); Mean Corpuscular Hgb 29.3 pg (27.0-32.0); Mean Corpuscular Volume 90.1 fL (81-99); Mean Platelet Vol. 10.8 fl (6.2-12.0); Monocyte# 0.52 X10^3/uL; Monocyte% 7.2 % (0-10); NRBC Flagged by Analyzer 0 % (0-5); Neutrophil # 3.76 X10^3/uL (2.7-7.7); Neutrophil % 51.9 % (47-70); Platelet Count 195 K/mm3 (150-450); RBC Distribution Width CV 11.7 % (11.6-14.6); RBC Distribution Width SD 38.7 fl (35.1-43.9); Red Blood Count 4.75 M/mm3 (4.2-5.4); White Blood Count 7.3 K/mm3 (4.4-11.0)
[2019-04-17 14:46] LABS: AST(SGOT) 18 U/L (15-37); Alanine Aminotransfer ALT/SGPT 25 U/L (13-56); Albumin, Serum 3.7 g/dL (3.2-5.0); Alkaline Phosphatase 42 U/L (45-117); Anion Gap 7 (5-15); BUN 11 mg/dL (7-18); BUN/Creat Ratio 13.1 RATIO (10-20); Calcium,Total 8.8 mg/dL (8.5-10.1); Chloride 112 mmol/L (98-107); Creatinine, Serum 0.84 mg/dL (0.55-1.02); EST Glomerular Filtration Rate 88 mL/min (>60); Est Glom Filt Rate - Afr Amer 107 mL/min (>60); Globulin 3.6 g/dL (2.2-4.2); Glucose 85 mg/dL (74-106); Potassium 4.2 mmol/L (3.5-5.1); Protein, Total 7.3 g/dL (6.4-8.2); Sodium Level 143 mmol/L (136-145); Thyroid Stim Hormone (TSH) 0.46 uIU/mL (0.358-3.74)
== END ==
PROVIDERS: Family Medicine; Family Provider Family Medicine; PCP Family Medicine; Referring Provider Family Medicine; Visit Provider Family Medicine
DX: R63.4 Abnormal weight loss (principal)
CPT/HCPCS: 36415; 80053; 84443; 85025; 85652

== ENCOUNTER → 2019-05-20 08:32 | Outpatient (CLI) | payer OTHER, SELFPAY ==
--- NOTE | 2019-05-20 08:36 | RAD_ITS ---
PROCEDURE: SMALL BOWEL SERIES DATE OF EXAMINATION: May 20, 2019. INDICATION: Female, 23 years old. Crohn's disease. Prior resection of small bowel loops. Constipation and diarrhea. PHYSICIAN: Haile Jean Baptiste M.D. FLUOROSCOPY TIME (if supplied): (0:34) minutes/seconds TECHNIQUE: Radiographic and fluoroscopic images were taken of the small intestine following the ingestion of barium. COMPARISON: None. FINDINGS: A preliminary supine KUB was obtained. There is an unremarkable bowel gas pattern. Fecal material is present throughout the colon. Surgical clips are seen in the region of the right mid abdomen. The osseous structures are normal. The patient orally ingested approximately 12 ounces of thin barium Normal visualized fundus, body, and antrum of the stomach. Normal duodenal bulb, C-loop, and proximal jejunum. Normal visualized mucosal folds of the jejunum and ileum. There are no demonstrated dilatations, strictures, or masses of the small intestine. There is no mass displacement of the loops of small intestine. There is evidence of resection of the distal ileum. There is a normal motor pattern with barium reaching the colon within approximately 50 minutes. Spot films under fluoroscopic observation demonstrated a normal terminal ileum and ileocecal valve. RAD/Small Bowel Series Only IMPRESSION: Status post resection of distal ileum. No acute abnormality is seen. Electronically Signed: Haile Jean Baptiste, at 13:07 EDT , Service support ,
== END ==
PROVIDERS: Family Provider Family Medicine; PCP Family Medicine; Referring Provider Internal Medicine Gastroenterology; Visit Provider Internal Medicine Gastroenterology
DX: K50.90 Crohn's disease, unspecified, without complications (principal)
CPT/HCPCS: 74250

== ENCOUNTER → 2019-05-26 15:53 | Outpatient (CLI) | payer OTHER, SELFPAY ==
[2019-05-26 12:00] VITALS: BMI 35.8
[2019-05-26 21:58] LABS: Chlamydia Trachomatis by PCR Negative (Negative); Neisserai gonorrhoeae by PCR Negative (Negative); Probe Check PASS; Sample Adequacy Control PASS; Specimen Processing Control PASS
== END ==
PROVIDERS: Family Provider Family Medicine; PCP Family Medicine; Referring Provider Nurse Practitioner Women's Health; Visit Provider Nurse Practitioner Women's Health
DX: Z11.3 Encounter for screening for infections with a predominantly sexual mode of transmission (principal)
CPT/HCPCS: 87491; 87591

== ENCOUNTER → 2019-07-14 11:51 | Outpatient (CLI) | payer OTHER, SELFPAY ==
[2019-06-17 11:45] VITALS: BMI 32.7
[2019-07-14 13:58] LABS: Basophil# 0.04 X10^3/uL; Basophil% 0.5 % (0-1); Eosinophil# 0.09 X10^3/uL; Eosinophils% 1.2 % (0-5); Hematocrit 40.5 % (37-47); Hemoglobin 13.5 g/dL (12.0-15.0); Lymphocyte % 36.2 % (19-41); Mean Corp Hgb Conc 33.3 g/dL (32-36); Mean Corpuscular Hgb 29.3 pg (27.0-32.0); Mean Platelet Vol. 10.8 fl (6.2-12.0); Monocyte% 8.1 % (0-10); NRBC Flagged by Analyzer 0 % (0-5); Neutrophil % 53.7 % (47-70); Platelet Count 209 K/mm3 (150-450); RBC Distribution Width CV 11.7 % (11.6-14.6); RBC Distribution Width SD 37.6 fl (35.1-43.9); White Blood Count 7.5 K/mm3 (4.4-11.0)
[2019-07-14 14:24] LABS: ALB/GLOB Ratio 1.2 RATIO (0.9-2.4); AST(SGOT) 26 U/L (15-37); Alanine Aminotransfer ALT/SGPT 29 U/L (13-56); Albumin, Serum 4.1 g/dL (3.2-5.0); Alkaline Phosphatase 41 U/L (45-117); Anion Gap 8 (5-15); BUN 13 mg/dL (7-18); BUN/Creat Ratio 15.1 RATIO (10-20); CRP < 2.90 mg/L (0.0-3.0); Calcium,Total 8.6 mg/dL (8.5-10.1); Chloride 108 mmol/L (98-107); Creatinine, Serum 0.86 mg/dL (0.55-1.02); EST Glomerular Filtration Rate 85 mL/min (>60); Est Glom Filt Rate - Afr Amer 103 mL/min (>60); Ferritin 59 ng/mL (8-252); Globulin 3.3 g/dL (2.2-4.2); Glucose 83 mg/dL (74-106); Lipase 210 U/L (73-393); Potassium 3.9 mmol/L (3.5-5.1); Protein, Total 7.4 g/dL (6.4-8.2); Sodium Level 140 mmol/L (136-145)
== END ==
PROVIDERS: Family Provider Family Medicine; PCP Family Medicine; Visit Provider Family Medicine
DX: K50.90 Crohn's disease, unspecified, without complications (principal)
CPT/HCPCS: 36415; 80053; 82728; 83690; 85025; 86140; A4216

== ENCOUNTER → 2019-07-15 13:21 | Outpatient (CLI) | payer OTHER, SELFPAY ==
[2019-06-17 11:45] VITALS: BMI 32.7
== END ==
PROVIDERS: Family Provider Family Medicine; PCP Family Medicine; Referring Provider Family Medicine; Visit Provider Family Medicine
DX: K50.90 Crohn's disease, unspecified, without complications (principal)
CPT/HCPCS: 82705

== ENCOUNTER 2019-07-18 17:31 | Emergency (ER) | payer OTHER, SELFPAY ==
[2019-06-17 11:45] VITALS: BMI 32.7
[2019-07-18 17:32] VITALS: BP 125/63; PULSE 70; RESP 16; TEMP 37.1; O2SAT 98; BMI 30.2
--- NOTE | 2019-07-18 17:55 | CT_ITS ---
STUDY: CT ABDOMEN AND PELVIS WITH CONTRAST REASON FOR EXAM: Female, 23 years old. Left upper quadrant pain, Crohn's RADIATION DOSAGE (If Supplied By Facility): CTDIvol = ( 10.85 ) mGy, DLP = ( 588.37 ) mGycm TECHNIQUE: Transaxial images were obtained from the dome of the diaphragm to the symphysis pubis without oral contrast. Oral and amp; IV Gastrografin and amp; 100mL Isovue-370 100ML was administered. Sagittal and coronal images were reconstructed. Individualized dose optimization techniques were used for this CT. COMPARISON: March 12, 2019 FINDINGS: 6 mm left lower lobe peripheral nodular density. The visualized portions of the heart are within normal limits. Normal liver. Normal gallbladder and extrahepatic biliary system. Normal spleen. Normal pancreas. Normal bilateral adrenal glands. Normal right kidney. Normal left kidney. Normal visualized stomach. Normal small intestine. Status post surgery at the proximal colon. The appendix is nonvisualized. Normal abdominal aorta. Normal inferior vena cava. Normal retroperitoneum. There are mildly prominent mesenteric nodes up to 1.7 cm. Normal urinary bladder. IUD in the uterus. Normal abdominal wall. Normal osseous structures. CT/Abdomen/Pelvis WITH Contrast IMPRESSION: Mild mesenteric adenitis. Electronically Signed: Topher Jason DO at 20:16 EST Tel [phone], Service support ,
--- NOTE | 2019-07-18 17:58 | ED.VISSUMM ---
- ER Visit Summary Date of Service: 07/18/19 Chief Complaint: Left upper quadrant abdominal pain History of Present Illness: The patient is a 23 F who presents with left upper quadrant abdominal pain that has been waxing and waning over the past 2 months. Patient describes her pain as burning and stabbing. Patient states the pain became worse today. Patient states she started having nausea and vomiting today. Patient denies any hematemesis or coffee-ground emesis. Patient states her pain is worse with any eating or activity. Patient admits to some diarrhea. Patient denies any dysuria or hematuria. Patient states her last menstrual period was at the end of last month. Patient states she has a history of Crohn's disease. Patient admits to subjective fevers and chills. Physical Examination: Vital signs are stable. Patient is afebrile. Patient is in no acute distress. Oral mucosa is pink and moist. Neck is supple. Trachea is midline. There is no JVD. Heart was regular rate and rhythm. Lungs are clear and equal bilaterally. Abdomen is soft. Bowel sounds are normal. There is left upper and left lower quadrant tenderness. There is no rebound or guarding noted. There is some mild left CVA tenderness. Cranial nerves II through XII are intact. There are no focal motor or sensory deficits noted. Test Results: CBC and comprehensive metabolic profile within normal limits. Urinalysis does not show any evidence of urinary tract infection. CT scan of the abdomen and pelvis was obtained. There is mild mesenteric adenitis but there is no acute intra-abdominal process noted. Emergency Department Course and Treatment: Patient was given IV fluids, Dilaudid, and Zofran. Patient felt better on reevaluation. Patient was instructed to start with a bland diet and advance as tolerated. Patient was instructed to follow-up with her primary care physician and her digital sales assistant in 5 to 7 days. Patient understood and was agreeable with the plan. All questions were answered. Disposition: Discharge home Impression: 1. Abdominal pain 2. History of Crohn's disease This note was generated with [employer] dictation software. It may contain incorrect words, spelling, and punctuation that were not noted in review of the chart prior to signing ED Disposition - Plan for ED Patient: Disposition: Home or Assisted Living Diagnosis: Abdominal pain, Crohns disease Instructions: Crohn's Disease, ABDOMINAL PAIN, Unknown Cause, (Female) Referrals: Faustino Hobbs MD [Primary Care Provider] - 5-7 Days
[2019-07-18] MEDS: Ondansetron 4 MG/2 ML Vial IV (18:12)
[2019-07-18] MEDS: 0.9% Normal Saline 1,000 ML 1000 ML IV (18:12)
[2019-07-18] MEDS: HYDROmorphone 1 MG/ML Syringe 0.5 MG IV (18:12)
[2019-07-18 18:14] LABS: Absolute Lymphocyte Count 2.78 X10^3/uL (0.83-4.51); Basophil# 0.03 X10^3/uL; Basophil% 0.4 % (0-1); Eosinophil# 0.08 X10^3/uL; Hematocrit 39.3 % (37-47); Hemoglobin 13.1 g/dL (12.0-15.0); Lymphocyte # 2.78 X10^3/ul (4.0); Lymphocyte % 36.2 % (19-41); Mean Corp Hgb Conc 33.3 g/dL (32-36); Mean Corpuscular Hgb 29.1 pg (27.0-32.0); Mean Corpuscular Volume 87.3 fL (81-99); Mean Platelet Vol. 10.1 fl (6.2-12.0); Monocyte# 0.83 X10^3/uL; Monocyte% 10.8 % (0-10); NRBC Flagged by Analyzer 0 % (0-5); Neutrophil # 3.96 X10^3/uL (2.7-7.7); Neutrophil % 51.5 % (47-70); Platelet Count 224 K/mm3 (150-450); RBC Distribution Width CV 11.8 % (11.6-14.6); RBC Distribution Width SD 37.8 fl (35.1-43.9); White Blood Count 7.7 K/mm3 (4.4-11.0)
[2019-07-18 18:35] LABS: Internal QC Validated? YES +Cl - CLEAR BKGD; Pregnancy, Serum, hCG Quali. NEGATIVE Negative
[2019-07-18 18:42] LABS: ALB/GLOB Ratio 1.3 RATIO (0.9-2.4); AST(SGOT) 24 U/L (15-37); Alanine Aminotransfer ALT/SGPT 32 U/L (13-56); Albumin, Serum 3.9 g/dL (3.2-5.0); Alkaline Phosphatase 37 U/L (45-117); Anion Gap 6 (5-15); BUN 12 mg/dL (7-18); BUN/Creat Ratio 15.4 RATIO (10-20); Calcium,Total 8.7 mg/dL (8.5-10.1); Chloride 109 mmol/L (98-107); Creatinine, Serum 0.78 mg/dL (0.55-1.02); EST Glomerular Filtration Rate 96 mL/min (>60); Est Glom Filt Rate - Afr Amer 116 mL/min (>60); Estimated Creatinine Clearance 87.96 ml/min; Globulin 3.1 g/dL (2.2-4.2); Glucose 82 mg/dL (74-106); Lipase 118 U/L (73-393); Potassium 3.8 mmol/L (3.5-5.1); Sodium Level 141 mmol/L (136-145)
[2019-07-18 19:57] LABS: Mucous, Urine 0 SEEN /hpf (<or=2+); Red Blood Cells-Urine 0 SEEN /hpf (0-5)
[2019-07-18 20:02] LABS: Color, Urine Yellow (Yellow); Glucose, Dipstick Normal (Normal); Ketone-Dipstick Negative (Negative); Leukocyte Esterase-Dipstick 25 /ul (Negative); Nitrite-Dipstick Negative (Negative); Occult Blood-Urine 25 /ul (Negative); Protein-Dipstick Negative (Negative); Urine Bilirubin Dipstick Negative (Negative); Urine Clarity Cloudy (Clear); Urine Urobilinogen Normal (Normal)
[2019-07-18 20:12] LABS: Squamous Epithelial Cells - UA 0-5 SEEN /hpf (5-10)
[2019-07-18 20:14] LABS: Bacteria 1+ /hpf (None Seen); White Blood Cells 0-5 SEEN /hpf (0-5)
[2019-07-18 21:04] VITALS: BP 123/80; PULSE 62; RESP 16
== END 2019-07-18 21:05 | disposition home or self-care (01) ==
PROVIDERS: Emergency Provider Emergency Medicine; Family Provider Family Medicine; PCP Family Medicine
DX: K50.90 Crohn's disease, unspecified, without complications (principal); I88.0 Nonspecific mesenteric lymphadenitis
CPT/HCPCS: 74177; 80053; 81001; 83690; 84703; 85025; 96361; 96374; 96375; 99283; J7030; Q9967; A4216; J2405

== ENCOUNTER 2019-08-26 14:01 | Outpatient (RCR) | payer OTHER, SELFPAY ==
[2019-07-22 10:13] VITALS: BMI 30.2
== END 2019-08-26 23:59 | disposition home or self-care (01) ==
LOC: NS 14:01
PROVIDERS: Family Provider Family Medicine; PCP Family Medicine; Visit Provider Internal Medicine Gastroenterology
DX: Z71.3 Dietary counseling and surveillance (principal); R63.4 Abnormal weight loss; K31.84 Gastroparesis; K50.90 Crohn's disease, unspecified, without complications
CPT/HCPCS: 97802

== ENCOUNTER → 2020-01-13 | Outpatient (CLI) | payer OTHER, SELFPAY ==
[2020-01-13 10:49] VITALS: BMI 30.2
[2020-01-13 19:53] LABS: Chlamydia Trachomatis by PCR Negative (Negative); Neisserai gonorrhoeae by PCR Negative (Negative); Probe Check PASS; Sample Adequacy Control PASS; Specimen Processing Control PASS
== END | disposition home or self-care (01) ==
LOC: LABSPEC 16:59
PROVIDERS: PCP Family Medicine; Visit Provider Nurse Practitioner Women's Health
DX: Z11.3 Encounter for screening for infections with a predominantly sexual mode of transmission (principal)
CPT/HCPCS: 87491; 87591

== ENCOUNTER → 2020-04-27 09:00 | Outpatient (CLI) | payer OTHER, SELFPAY ==
[2020-01-13 10:49] VITALS: BMI 30.2
[2020-04-27 10:19] LABS: Absolute Lymphocyte Count 1.61 X10^3/uL (0.83-4.51); Absolute Neutrophil Count 4.5 X10^3/uL (2.0-7.7); Basophil# 0.04 X10^3/uL; Basophil% 0.6 % (0-1); Eosinophil# 0.18 X10^3/uL; Eosinophils% 2.6 % (0-5); Hemoglobin 12.4 g/dL (12.0-15.0); Lymphocyte # 1.61 X10^3/ul (4.0); Lymphocyte % 23.3 % (19-41); Mean Corp Hgb Conc 31.8 g/dL (32-36); Mean Corpuscular Hgb 28.8 pg (27.0-32.0); Mean Corpuscular Volume 90.7 fL (81-99); Mean Platelet Vol. 10.4 fl (6.2-12.0); Monocyte# 0.54 X10^3/uL; Monocyte% 7.8 % (0-10); NRBC Flagged by Analyzer 0 % (0-5); Neutrophil # 4.53 X10^3/uL (2.7-7.7); Neutrophil % 65.4 % (47-70); Platelet Count 240 K/mm3 (150-450); RBC Distribution Width CV 11.7 % (11.6-14.6); RBC Distribution Width SD 39.2 fl (35.1-43.9); White Blood Count 6.9 K/mm3 (4.4-11.0)
[2020-04-27 10:31] LABS: Vitamin B12 567 pg/mL (211-911)
[2020-04-27 10:49] LABS: ALB/GLOB Ratio 0.9 RATIO (0.9-2.4); AST(SGOT) 24 U/L (15-37); Alanine Aminotransfer ALT/SGPT 28 U/L (13-56); Albumin, Serum 3.3 g/dL (3.2-5.0); Alkaline Phosphatase 38 U/L (45-117); Anion Gap 5 (5-15); BUN 14 mg/dL (7-18); BUN/Creat Ratio 14.1 RATIO (10-20); Calcium,Total 8.4 mg/dL (8.5-10.1); Chloride 109 mmol/L (98-107); Creatinine, Serum 0.99 mg/dL (0.55-1.02); EST Glomerular Filtration Rate 72 mL/min (>60); Est Glom Filt Rate - Afr Amer 88 mL/min (>60); Ferritin 31 ng/mL (8-252); Globulin 3.7 g/dL (2.2-4.2); Glucose 99 mg/dL (74-106); Sodium Level 139 mmol/L (136-145)
== END ==
PROVIDERS: PCP Family Medicine; Referring Provider Family Medicine; Visit Provider Family Medicine
DX: R53.81 Other malaise (principal); K50.90 Crohn's disease, unspecified, without complications
CPT/HCPCS: 36415; 80053; 82607; 82728; 82746; 84443; 85025

== ENCOUNTER → 2020-06-11 11:20 | Outpatient (CLI) | payer OTHER, SELFPAY ==
[2020-05-03 08:11] VITALS: BMI 30.2
[2020-06-11 15:37] LABS: Absolute Lymphocyte Count 1.64 X10^3/uL (0.83-4.51); Absolute Neutrophil Count 4.4 X10^3/uL (2.0-7.7); Basophil# 0.04 X10^3/uL; Basophil% 0.6 % (0-1); Eosinophil# 0.18 X10^3/uL; Eosinophils% 2.7 % (0-5); Hematocrit 40.7 % (37-47); Lymphocyte # 1.64 X10^3/ul (4.0); Lymphocyte % 24.3 % (19-41); Mean Corp Hgb Conc 31.9 g/dL (32-36); Mean Corpuscular Hgb 28.4 pg (27.0-32.0); Mean Corpuscular Volume 89.1 fL (81-99); Mean Platelet Vol. 10.4 fl (6.2-12.0); Monocyte# 0.47 X10^3/uL; NRBC Flagged by Analyzer 0 % (0-5); Neutrophil % 65.1 % (47-70); Platelet Count 236 K/mm3 (150-450); RBC Distribution Width CV 11.7 % (11.6-14.6); Red Blood Count 4.57 M/mm3 (4.2-5.4); White Blood Count 6.8 K/mm3 (4.4-11.0)
[2020-06-11 16:06] LABS: ALB/GLOB Ratio 1.3 RATIO (0.9-2.4); AST(SGOT) 22 U/L (15-37); Alanine Aminotransfer ALT/SGPT 31 U/L (13-56); Albumin, Serum 3.9 g/dL (3.2-5.0); Alkaline Phosphatase 35 U/L (45-117); Anion Gap 7 (5-15); BUN 11 mg/dL (7-18); BUN/Creat Ratio 12.4 RATIO (10-20); CRP < 2.90 mg/L (0.0-3.0); Calcium,Total 8.8 mg/dL (8.5-10.1); Chloride 111 mmol/L (98-107); Creatinine, Serum 0.89 mg/dL (0.55-1.02); EST Glomerular Filtration Rate 82 mL/min (>60); Est Glom Filt Rate - Afr Amer 99 mL/min (>60); Ferritin 70 ng/mL (8-252); Globulin 3.1 g/dL (2.2-4.2); Glucose 82 mg/dL (74-106); Iron 93 ug/dL (50-170); Iron Binding Capacity,Total 321 ug/dL (250-450); Potassium 4.3 mmol/L (3.5-5.1); Sodium Level 142 mmol/L (136-145); Thyroid Stim Hormone (TSH) 0.42 uIU/mL (0.358-3.74)
[2020-06-11 16:29] LABS: Erythrocyte Sedimentation Rate 6 mm/hr (0-20)
[2020-06-16 20:07] LABS: QNTFERON TB Mitogen Value > 10.00 IU/mL (.); QNTFERON TB Nil Value 0.03 IU/mL (.); QNTFERON TB1+ Ag Value 0.03 IU/mL (.); QNTFERON TB2+ Ag Value 0.02 IU/mL (.)
[2020-06-17 00:11] LABS: QNTIFERON TB Positive Criteria Negative (Negative)
== END ==
PROVIDERS: PCP Family Medicine; Referring Provider Family Medicine; Visit Provider Family Medicine
DX: R61 Generalized hyperhidrosis (principal); D50.9 Iron deficiency anemia, unspecified; K50.90 Crohn's disease, unspecified, without complications
CPT/HCPCS: 36415; 80053; 82728; 83540; 83550; 84443; 85025; 85652; 86140; 86480

== ENCOUNTER → 2023-02-07 | Outpatient (CLI) | payer MEDICAID, SELFPAY ==
[2023-02-12 16:15] LABS: HPV Reflexed? NOT INDICATED
== END | disposition home or self-care (01) ==
LOC: LABSPEC 16:15
PROVIDERS: PCP Family Medicine; Referring Provider Advanced Practice Midwife; Visit Provider Advanced Practice Midwife
DX: Z12.4 Encounter for screening for malignant neoplasm of cervix (principal)
CPT/HCPCS: 88175; G0145

== ENCOUNTER 2023-06-29 05:17 | Emergency (ER) | payer MEDICAID, SELFPAY ==
[2023-06-29 05:17] VITALS: BP 118/63; PULSE 71; RESP 18; TEMP 36.6; O2SAT 96; BMI 37.7
[2023-06-29 05:37] LABS: Mucous, Urine 0 SEEN /hpf (<or=2+)
[2023-06-29 05:38] LABS: Color, Urine Yellow (Yellow); Glucose, Dipstick Normal (Normal); Ketone-Dipstick 5 mg/dl (Negative); Leukocyte Esterase-Dipstick 100 /ul (Negative); Nitrite-Dipstick Negative (Negative); Occult Blood-Urine 250 /ul (Negative); Protein-Dipstick 30 mg/dl (Negative); Urine Clarity Clear (Clear); Urine Urobilinogen 1 mg/dl (Normal)
[2023-06-29 05:42] LABS: Internal QC Validated? YES +Cl - CLEAR BKGD; Pregnancy, Urine Negative Negative; Urine Bilirubin Dipstick 1 mg/dL (Negative)
--- NOTE | 2023-06-29 05:48 | CT_ITS ---
INDICATION: KIDNEY STONE EXAMINATION: CT ABDOMEN AND PELVIS WITHOUT CONTRAST - CT Abdomen And Pelvis W/O Contrast Injection TECHNIQUE: Helically acquired images were obtained of the abdomen and pelvis without oral or IV contrast. A radiation dose optimization technique was used for this scan. IV Contrast dosage and agent: None. Oral contrast: None. RADIATION DOSAGE (If Supplied By Facility): CTDIvol = ( 14.24 ) mGy, DLP = ( 700.87 ) mGycm COMPARISON: 07/18/2019 FINDINGS: LOWER CHEST: 6 mm left lower lobe peripheral nodular density is stable since the previous study. The visualized portions of the heart are within normal limits. There are mildly prominent mesenteric nodes up to 1.7 cm. LIVER: Homogeneous. No focal mass. GALLBLADDER AND BILIARY TREE: No calcified gallstones. No gallbladder distension or wall edema. No intra- or extrahepatic biliary ductal dilation. PANCREAS: No focal cystic or solid mass. SPLEEN: Normal size without focal cystic or solid mass. ADRENAL GLANDS: No nodules. KIDNEYS AND URETERS: Normal renal size and position. 2 mm stone in the distal left ureter near the UVJ with resultant mild left hydronephrosis and hydroureter. PERITONEUM: No ascites or free air. No other fluid collection. BOWEL: Partial colectomy with ileocolic anastomosis. No stomach or bowel distension. No focal inflammatory change. LYMPH NODES: No enlarged mesenteric or retroperitoneal lymph nodes. VESSELS: Aorta is non-dilated. URINARY BLADDER: Unremarkable. REPRODUCTIVE ORGANS: No pelvic masses. ABDOMINAL WALL: No discrete abdominal or pelvic wall hernia. BONES: No lytic or blastic abnormality. CT/Abdomen/Pelvis without Cont IMPRESSION: 2 mm stone in the distal left ureter near the UVJ with resultant mild left hydronephrosis and hydroureter. Persistent moderate enlargement of the mesenteric lymph nodes suggesting reactive lymphoid hyperplasia. Electronically Signed: Jason Juarez MD at 6:29 EST ,
[2023-06-29 05:51] LABS: Amorphous Sediment RARE; Bacteria 2+ /hpf (None Seen); Calcium Oxalate Crystals Ur 3+ /hpf (<or=2+); Red Blood Cells-Urine 0-5 SEEN /hpf (0-5); Squamous Epithelial Cells - UA 0-5 SEEN /hpf (5-10); White Blood Cells 0-5 SEEN /hpf (0-5)
--- NOTE | 2023-06-29 05:54 | ED.VIS.GI ---
HPI HPI - GI History of Present Illness Chief Complaint: Flank Pain Narrative Narrative: 27-year-old female presenting with acute onset left flank pain. Patient states her pain started at 3:30 AM. Stretches sharp and radiating to the left lower quadrant. She does not have any history of kidney stones. She states that the pain comes and goes. Denies dysuria, hematuria. No fevers or chills. Patient has history of Crohn's disease but states pain does not usually come on acutely like this. Patient reports chronic history of diarrhea. No black or bloody stools. PFSH PFSH Medical History (Updated 06/29/23 @ 06:[address] Riaz James, DO) Acute Crohn's disease Gastroparesis Home Medications medroxyprogesterone 150 mg/mL intramuscular syringe (Depo-Provera) 150 mg IM [id number] #1 mL 02/07/23 [Rx Last Taken Unknown] sertraline 150 mg capsule 150 mg PO DAILY 02/07/23 [History Last Taken Unknown] hydrocodone-acetaminophen 5-325mg 5mg-325mg 1 tab PO Q6H PRN PRN Pain 3 days #10 TABLETS 06/29/23 [Rx Last Taken Unknown] ondansetron 4 mg disintegrating tablet 4 mg PO Q8H PRN PRN Nausea #14 tabs 06/29/23 [Rx Last Taken Unknown] Allergy/AdvReac Type Severity Reaction Status Date / Time codeine Allergy Swelling Verified 06/29/23 05:21 morphine Allergy Shortness Verified 06/29/23 05:21 of breath Family History Mother Acute Crohn's disease Grandfather Diabetes Surgical History H/O bilateral breast reduction surgery History of bowel resection History of tonsillectomy and adenoidectomy [place] teeth extracted Social History current occupational status: employed current occupation: [employer] therapist [employer] Smoking Status: Never smoker alcohol intake: current alcohol intake frequency: holidays/special occasions only substance use type: marijuana caffeine: No what type of physical activity do you participate in: walking seatbelt use: always do you feel safe at home: Yes ROS ROS ED Constitutional Constitutional ED: Denies chills, fever(s) or sweats Eyes Eyes: Denies blurry vision or change in vision ENT ENT ED: Denies ear pain or sore throat Cardiovascular Cardiovascular: Denies chest pain, palpitations or racing heartbeat Respiratory/Chest Respiratory/Chest: Denies cough, dyspnea or sputum Gastrointestinal Gastrointestinal: Reports abdominal pain and diarrhea; Denies constipation, nausea or vomiting Genitourinary Genitourinary ED: Denies dysuria, hematuria or urinary frequency Musculoskeletal Musculoskeletal: Denies arthralgias, myalgias or neck pain Integumentary Denies abscess, Abrasions or rash Neurologic Neurologic: Denies headache(s), paresthesias or weakness Psychiatric Psychiatric: Denies anxiety, depression, suicidal ideation or suicidal thoughts Endocrine Endocrinology: Denies polydipsia or polyuria EXAM Physical Exam Const Vital Signs: 06/29/23 05:17 06/29/23 06:50 Temperature 97.9 F Temperature Source Temporal Pulse Rate 71 Respiratory Rate 18 18 Blood Pressure 118/63 Blood Pressure Mean 81 Pulse Ox 96 Oxygen Delivery Method Room Air General Appearance ED: Negative for pallor HEENT Reports normocephalic and moist mucous membranes Eyes PERRL and EOMs intact bilaterally Neck no lymphadenopathy and supple Cardio regular rate and regular rhythm GI normal to inspection, nondistended, normoactive bowel sounds and non-distended Auscultation: normoactive bowel sounds Palpation: soft Narrative: Deferred Back/Spine no CVA tenderness General Back: Negative for CVA tenderness Cervical Spine: Negative for cervical spine tenderness Extremity normal to inspection General Extremety ED: Yes edema and tenderness General Extremity: edema Neuro oriented x3 and CN's II-XII intact bilaterally Sensorium / Orientation: alert Motor Exam: strength 5/5 throughout Psych mental status grossly normal Attitude: No agitated Skin no rashes or lesions noted and no wounds General Skin Exam: Negative for jaundice or pallor MDM MDM MDM Narrative Medical decision making narrative: Patient presenting with right flank pain. Differential includes colitis, diverticulitis, gastritis, pancreatitis, constipation, UTI, pyelonephritis, renal calculi, ureteral calculi, bowel obstruction, malignancy, dehydration, electrolyte abnormalities, , ectopic , ovarian cyst, ovarian torsion. Urinalysis was obtained to assess for UTI and occult blood. CBC to assess white blood cell count, hemoglobin, platelets. BMP to assess renal function and electrolytes. Urinalysis shows 250 occult blood. I suspect kidney stone. Urine test is negative. Patient declined analgesia but will go over to CT to get a noncontrast study to rule out kidney stone. CT of the abdomen pelvis shows a 2 mm distal UVJ stone. Patient will be given prescription for [place], Zofran in case her pain does return. She declines analgesia currently. Patient will be given follow-up with urology. Return precautions were discussed. Impression: 1. Hematuria 2. 2 mm UVJ stone 3. Left-sided hydronephrosis Lab Data Attestation: I reviewed the patient's lab results. Labs: Laboratory Results - last 24 hr 06/29/23 06/29/23 05:32 05:35 WBC 6.9 RBC 4.90 Hgb 13.9 Hct 42.8 MCV 87.3 MCH 28.4 MCHC 32.5 RDW Std Deviation 38.0 RDW Coeff of Ele 11.9 Plt Count 229 MPV 10.6 Immature Gran % (Auto) 0.300 Neut % (Auto) 57.3 Lymph % (Auto) 27.5 [place] % (Auto) 10.0 Eos % (Auto) 4.0 Baso % (Auto) 0.9 Absolute Neuts (auto) 4.0 Absolute Lymphs (auto) 1.90 Nucleated RBC % 0 Sodium 141 Potassium 3.9 Chloride 112 H Carbon Dioxide 24.0 Anion Gap 5 BUN 12 Creatinine 0.95 Estim Creat Clear Calc 69.73 Est GFR (MDRD) Af Amer 89 Est GFR (MDRD) Non-Af 74 BUN/Creatinine Ratio 12.6 Glucose 109 H Calcium 8.8 Urine Color Yellow Urine Clarity Clear Urine pH 5.0 Ur Specific [place] 1.030 Urine Protein 30 H Urine Glucose (UA) Normal Urine Ketones 5 H Urine Occult Blood 250 H Urine Nitrite Negative Urine Bilirubin 1 H Urine Urobilinogen 1 H Ur Leukocyte Esterase 100 H Urine RBC 0-5 SEEN Urine WBC 0-5 SEEN Ur Squamous Epith Cells 0-5 SEEN Calcium Oxalate Crystal 3+ Amorphous Sediment RARE Urine Bacteria 2+ Urine Mucus 0 SEEN Urine Test Negative Radiography Diagnostic Testing: Clinical Impression(s) from Imaging Studies Abdomen/Pelvis CT 06/29/23 05:48 IMPRESSION: 2 mm stone in the distal left ureter near the UVJ with resultant mild left hydronephrosis and hydroureter. Persistent moderate enlargement of the mesenteric lymph nodes suggesting reactive lymphoid hyperplasia. Electronically Signed: Jason Juarez MD at 6:29 EST , Discharge Plan Triage Chief Complaint: Flank Pain ED Provider: Riaz James Dx/Rx/DC Orders Instructions: ED Kidney Stone w/ Colic Prescriptions: New ondansetron 4 mg tablet,disintegrating 4 mg PO Q8H PRN PRN (Reason: Nausea) Qty: 14 0RF hydrocodone-acetaminophen 5-325 mg tablet 1 tab PO Q6H PRN PRN (Reason: Pain) 3 Days Qty: 10 0RF No Action sertraline 150 mg capsule 150 mg PO DAILY medroxyprogesterone [Depo-Provera] 150 mg/mL syringe 150 mg IM [id number] Qty: 1 4RF Primary Care Provider: Faustino Hobbs Referrals: Faustino Hobbs MD [Primary Care Provider] - Lizabeth Desai MD [Med Staff - Active Staff] - 3-5 Days Disposition Disposition: Home, Self Care Discharge Date/Time: 06/29/23 06:51
[2023-06-29 05:59] LABS: Basophil# 0.06 X10^3/uL; Basophil% 0.9 % (0-1); Eosinophil# 0.28 X10^3/uL; Hematocrit 42.8 % (37-47); Hemoglobin 13.9 g/dL (12.0-15.0); Lymphocyte % 27.5 % (19-41); Mean Corp Hgb Conc 32.5 g/dL (32-36); Mean Corpuscular Hgb 28.4 pg (27.0-32.0); Mean Corpuscular Volume 87.3 fL (81-99); Mean Platelet Vol. 10.6 fl (6.2-12.0); Monocyte# 0.69 X10^3/uL; NRBC Flagged by Analyzer 0 % (0-5); Neutrophil # 3.97 X10^3/uL (2.7-7.7); Neutrophil % 57.3 % (47-70); Platelet Count 229 K/mm3 (150-450); RBC Distribution Width CV 11.9 % (11.6-14.6); White Blood Count 6.9 K/mm3 (4.4-11.0)
[2023-06-29 06:13] LABS: Anion Gap 5 (5-15); BUN 12 mg/dL (7-18); BUN/Creat Ratio 12.6 RATIO (10-20); Calcium,Total 8.8 mg/dL (8.5-10.1); Chloride 112 mmol/L (98-107); Creatinine, Serum 0.95 mg/dL (0.55-1.02); EST Glomerular Filtration Rate 74 mL/min (>60); Est Glom Filt Rate - Afr Amer 89 mL/min (>60); Estimated Creatinine Clearance 69.73 ml/min; Glucose 109 mg/dL (74-106); Potassium 3.9 mmol/L (3.5-5.1); Sodium Level 141 mmol/L (136-145)
[2023-06-29 06:50] VITALS: RESP 18
== END 2023-06-29 06:51 | disposition home or self-care (01) ==
PROVIDERS: Emergency Provider Student in an Organized Health Care Education/Training Program; PCP Family Medicine; Visit Provider Student in an Organized Health Care Education/Training Program
DX: R31.9 Hematuria, unspecified (principal); N13.2 Hydronephrosis with renal and ureteral calculous obstruction; F12.90 Cannabis use, unspecified, uncomplicated; Z79.899 Other long term (current) drug therapy
CPT/HCPCS: 74176; 80048; 81001; 81025; 85025; 99282; A4216